=== PATIENT | female | born 1980 | race Caucasian/White ===

== ENCOUNTER → 2016-06-19 | Outpatient (CLI) | payer BC ==
[~2016-06-19] MED LIST: LEVO50TA6 PO; PRENTAB26 PO
[2016-06-19 09:44] LABS: BASO % 0.5 %; BASO ABS # 0.02 K/uL (0-0.2); EOS % 1.1 %; HEMATOCRIT 41.2 % (37-47); LYMPH % 40.6 %; LYMPH ABS # 1.77 K/uL (1.2-3.4); MEAN CELL VOLUME 92.8 fL (80-100); MEAN CORPUSCULAR HEMOGLOBIN 31.3 pg (25-34); MEAN PLATELET VOLUME 10.5 fL (7.4-10.4); MONO % 5.3 %; NEUT % 52.5 %; PLATELET COUNT 249 K/uL (130-400); RED BLOOD COUNT 4.44 M/uL (4.2-5.4); WHITE BLOOD COUNT 4.36 K/uL (4.8-10.8)
[2016-06-19 09:49] LABS: COMPLETE YES; MEAN CORPUSCULAR HGB CONC 33.7 g/dl (32-36)
[2016-06-19 10:37] LABS: PROLACTIN 1.84 ng/mL
== END | disposition home or self-care (01) ==
LOC: C.LAB 09:09
PROVIDERS: ATTEND Obstetrics & Gynecology Reproductive Endocrinology
DX: Z01.89 Encounter for other specified special examinations (principal); Z31.41 Encounter for fertility testing; Z13.29 Encounter for screening for other suspected endocrine disorder; Z13.21 Encounter for screening for nutritional disorder; Z11.3 Encounter for screening for infections with a predominantly sexual mode of transmission

== ENCOUNTER → 2016-08-25 | Outpatient (CLI) | payer BC | END | disposition home or self-care (01) | LOC: C.LAB 08:41 | PROVIDERS: ATTEND Obstetrics & Gynecology Reproductive Endocrinology | DX: O09.00 Supervision of pregnancy with history of infertility, unspecified trimester (principal); Z3A.00 Weeks of gestation of pregnancy not specified ==

== ENCOUNTER → 2016-09-30 | Outpatient (CLI) | payer BC ==
[2016-09-30 13:15] LABS: URINE APPEARANCE CLEAR (CLEAR); URINE BILIRUBIN NEG (NEG); URINE COLOR YELLOW; URINE NITRITE NEG (NEG); URINE SPECIFIC GRAVITY 1.009 (1.000-1.030); UROBILINOGEN NEG (NEG)
[2016-09-30 13:22] LABS: MANUAL MICROSCOPIC REQUIRED? NO; REVIEW REQ? NO
== END | disposition home or self-care (01) ==
LOC: C.LABSPEC 12:31
PROVIDERS: ATTEND Obstetrics & Gynecology
DX: O09.521 Supervision of elderly multigravida, first trimester (principal); Z3A.00 Weeks of gestation of pregnancy not specified

== ENCOUNTER → 2016-10-06 | Outpatient (CLI) | payer BC ==
[2016-10-06 10:27] LABS: BASO % 0.1 %; BASO ABS # 0.01 K/uL (0-0.2); COMPLETE YES; EOS % 0.4 %; HEMATOCRIT 39.2 % (37-47); IG% 0.1 %; LYMPH % 27.4 %; LYMPH ABS # 2.04 K/uL (1.2-3.4); MEAN CELL VOLUME 90.7 fL (80-100); MEAN CORPUSCULAR HEMOGLOBIN 32.6 pg (25-34); MEAN PLATELET VOLUME 10.5 fL (7.4-10.4); MONO % 4.7 %; NEUT % 67.3 %; PLATELET COUNT 234 K/uL (130-400); RED BLOOD COUNT 4.32 M/uL (4.2-5.4); WHITE BLOOD COUNT 7.44 K/uL (4.8-10.8)
[2016-10-06 11:08] LABS: THYROID STIMULATING HORMONE 1.21 uIu/ml (0.300-4.500)
[2016-10-08 01:02] LABS: CHLAMYDIA TRACH RNA*** NOT DETECTED (NOT DETECTED); GC (NEIS GONORRHOEAE)RNA** NOT DETECTED (NOT DETECTED)
== END | disposition home or self-care (01) ==
LOC: C.LAB1850 08:59
PROVIDERS: ATTEND Obstetrics & Gynecology
DX: O09.521 Supervision of elderly multigravida, first trimester (principal); O99.281 Endocrine, nutritional and metabolic diseases complicating pregnancy, first trimester; E03.9 Hypothyroidism, unspecified

== ENCOUNTER → 2016-11-09 | Outpatient (CLI) | payer BC ==
[2016-11-09 11:50] LABS: THYROID STIMULATING HORMONE 1.83 uIu/ml (0.300-4.500)
[2016-11-09 11:56] LABS: GTGD 50 Grams
[2016-11-10 15:23] LABS: AFP CONCENTRATION 20.8 NG/ML; AFP MULTIPLE OF MEDIAN 0.63; AFPTS GESTATIONAL AGE 15.9 WEEKS; AFPTS INSULIN DEP DIABETIC? NO; AFPTS MATERNAL WT 141 LBS; ALPHA-FETOPROTEIN RACE CAUCASIAN=W; EDD DETERMINED BY ULTRASOUND; HISTORY OF NTD NO; REPEAT SAMPLE? NO
== END | disposition home or self-care (01) ==
LOC: C.LAB1850 09:43
PROVIDERS: ATTEND Obstetrics & Gynecology
DX: O99.282 Endocrine, nutritional and metabolic diseases complicating pregnancy, second trimester (principal); O09.522 Supervision of elderly multigravida, second trimester; E03.9 Hypothyroidism, unspecified; Z3A.00 Weeks of gestation of pregnancy not specified

== ENCOUNTER → 2017-02-16 | Outpatient (CLI) | payer OTHER ==
[2017-02-16 13:08] LABS: HEMATOCRIT 37.2 % (37-47); HEMOGLOBIN 12.6 g/dL (12.0-16.0)
== END | disposition home or self-care (01) ==
LOC: C.LAB1850 12:16
PROVIDERS: ATTEND Obstetrics & Gynecology
DX: O09.523 Supervision of elderly multigravida, third trimester (principal); O99.282 Endocrine, nutritional and metabolic diseases complicating pregnancy, second trimester

== ENCOUNTER → 2017-03-01 | Outpatient (CLI) | payer OTHER | END | disposition home or self-care (01) | LOC: C.LABSPEC 16:26 | PROVIDERS: ATTEND Obstetrics & Gynecology | DX: O23.40 Unspecified infection of urinary tract in pregnancy, unspecified trimester (principal) ==

== ENCOUNTER → 2017-04-07 | Outpatient (CLI) | payer OTHER | END | disposition home or self-care (01) | LOC: C.LABSPEC 13:41 | PROVIDERS: ATTEND Obstetrics & Gynecology | DX: O99.283 Endocrine, nutritional and metabolic diseases complicating pregnancy, third trimester (principal) ==

== ENCOUNTER 2017-04-16 13:12 | Inpatient (IN) | payer OTHER ==
[~2017-04-16] VITALS: Ht 167.6 cm; Wt 68.6 kg
[2017-04-16] MEDS ORDERED: LACTATED RINGER'S 1000ML 1,000 ML IV PRN (13:28)
[2017-04-16] MEDS ORDERED: LACTATED RINGER'S 1000ML 1,000 ML IV SCH (13:35)
[2017-04-16] MEDS ORDERED: PENICILLIN G POTASSIUM IV 6 MU in DEXTROSE 5% 250ML 250 ML IV ONE (13:45)
[2017-04-16 13:56] LABS: HEMATOCRIT 36.1 % (37-47); HEMOGLOBIN 12.5 g/dL (12.0-16.0); MEAN CELL VOLUME 96.3 fL (80-100); MEAN CORPUSCULAR HEMOGLOBIN 33.3 pg (25-34); MEAN CORPUSCULAR HGB CONC 34.6 g/dl (32-36); MEAN PLATELET VOLUME 10.7 fL (7.4-10.4); PLATELET COUNT 162 K/uL (130-400); RED CELL DISTRIBUTION WIDTH CV 13.4 % (11.5-14.5); RED CELL DISTRIBUTION WIDTH SD 46.8 fL (36.4-46.3)
[2017-04-16 15:07] VITALS: Ht 167.6 cm; Wt 68.6 kg
[2017-04-16] MEDS ORDERED: OXYTOCIN 30 UNITS/500ML NSS IV ONE (15:58)
[2017-04-16] MEDS ORDERED: LANOLIN OINT EXT PRN (16:15)
[2017-04-16] MEDS ORDERED: BENZOCAINE 20% AER SPR 82.5 GM CAN EXT PRN (16:15)
[2017-04-16] MEDS ORDERED: OXYTOCIN 30 UNITS/500ML NSS IV PRN (16:15)
[2017-04-16] MEDS ORDERED: ACETAMINOPHEN/CODEINE 300/30MG TAB PO PRN ×2 (16:15)
[2017-04-16] MEDS ORDERED: ACETAMINOPHEN 325 MG TAB PO PRN (16:15)
[2017-04-16] MEDS ORDERED: SUPERCREAM 0.870 % 15GM JAR EXT PRN (16:15)
[2017-04-16] MEDS ORDERED: HYDROCORTISONE ACETATE 25 MG SUPP PR PRN (16:15)
[2017-04-16] MEDS ORDERED: DIPHTHERIA/TETANUS/PERTUSSIS 0.5 ML SYR/VIAL IM. ONE (16:15)
--- NOTE | 2017-04-16 17:18 | DELIVERY SUMMARY ---
DATE OF OPERATION: 04/16/2017 FINDINGS: Viable female with Apgars of 8 and 9. Baby delivered spontaneously over intact perineum. Nuchal cord x1 reduced on the perineum. Cord clamped and cut, cord blood samples obtained. Placenta delivered spontaneously. ESTIMATED BLOOD LOSS: 300 mL. LABOR NOTE: The patient is a 37-year-old 3, para 2 with an EDC of 27 April by dates and ultrasound who presented to labor and delivery in active labor. The patient had been having some contractions for the previous 18 hours that increased in intensity this morning of admission. She was seen in the office and noted to be 5 cm and sent to labor and delivery for evaluation. The patient has had a benign course. She had cell-free DNA testing because of advanced maternal age, which was reassuring. Blood type for the O negative, antibody negative, she received RhoGAM on 16 February. She was hepatitis B negative, rubella immune, normal 1-hour Glucola x2 and a positive third trimester beta strep culture. Upon admission, the patient was 6-7 cm dilated, tracing was category 2 with some decelerations with contractions, but variability and accelerations. With the GBS status, she received penicillin 6 million units loading dose. Approximately, an hour after the penicillin, the patient began to develop deeper decelerations with contractions. The patient was feeling pressure. Repeat examination showed the cervix to be 8 dilated, +2 station. Recommendation to the patient and her to have artificial rupture of membranes to proceed with delivery. Rupture of membranes were clear fluid and over the next contraction, the patient with full dilation. She pushed with the 2 contractions delivering the viable female with description as above. Cord blood samples obtained. Placenta delivered spontaneously. Inspection of the perineum found to be intact. Estimated blood loss for the delivery 300 mL. Sponge and needle count was correct. I attest to the content of the Intraoperative Record and any orders documented therein. Any exception s are noted below.
[2017-04-16] MEDS: IBUPROFEN 600 MG TAB PO PRN (17:22)
[2017-04-16] MEDS ORDERED: PENICILLIN G POTASSIUM IV 3 MU in DEXTROSE 5% 100ML 100 ML IV PRN (18:00)
[2017-04-16] MEDS: DOCUSATE SODIUM 100 MG CAP PO SCH (20:00)
[2017-04-16 20:55] VITALS: BP 100/65; PULSE 69; TEMP 36.4
[2017-04-16 23:25] VITALS: BP 99/59; PULSE 62; TEMP 36.7
[2017-04-17 03:40] VITALS: BP 96/54; PULSE 60; TEMP 36.9
[2017-04-17 06:55] LABS: HEMATOCRIT 35.5 % (37-47); HEMOGLOBIN 12.2 g/dL (12.0-16.0)
[2017-04-17] MEDS ORDERED: LEVOTHYROXINE 50 MCG TAB PO SCH (07:30)
--- NOTE | 2017-04-17 07:32 | Progress Note ---
Subjective Apr 17, 2017. Subjective conversation w/ patient, physical exam Ambulation: ambulating normally Feeding Type: Breast Feeding Objective Vital Signs Date Time Temp Pulse Resp B/P (MAP) Pulse Ox O2 Delivery O2 Flow Rate FiO2 04/17/17 03:40 36.9 60 18 96/54 (68) Room Air 04/16/17 23:25 36.7 62 18 99/59 (72) Room Air 04/16/17 23:25 Room Air 04/16/17 20:55 Room Air 04/16/17 20:55 36.4 69 18 100/65 (77) Room Air Physical Exam General Appearance: WELL-APPEARING, NO APPARENT DISTRESS Fundus: Firm Extremities: no calf tenderness Laboratory Results Last 24 Hours Test 04/16/17 13:43 04/17/17 06:33 White Blood Count 7.90 K/uL Red Blood Count 3.75 M/uL Hemoglobin 12.5 g/dL 12.2 g/dL Hematocrit 36.1 % 35.5 % Mean Corpuscular Volume 96.3 fL Mean Corpuscular Hemoglobin 33.3 pg Mean Corpuscular Hemoglobin Concent 34.6 g/dl RDW Standard Deviation 46.8 fL RDW Coefficient of Variation 13.4 % Platelet Count 162 K/uL Mean Platelet Volume 10.7 fL Assessment and Plan Post- Day#: 1 Continue Routine Care: - routine care - doing well
[2017-04-17 07:45] VITALS: BP 105/69; PULSE 59; TEMP 36.5; O2SAT 98
[2017-04-17] MEDS ORDERED: FERROUS SULFATE 325 MG TAB PO SCH (08:00)
[2017-04-17] MEDS: PRENATAL VITAMIN TAB PO SCH (09:06)
[2017-04-17] MEDS: DOCUSATE SODIUM 100 MG CAP PO SCH ×2 (09:07→20:00)
[2017-04-17 11:15] VITALS: BP 102/66; PULSE 56; TEMP 36.7; O2SAT 99
[2017-04-17 14:45] VITALS: BP 111/81; PULSE 60; TEMP 37; O2SAT 98
[2017-04-17] MEDS ORDERED: BISACODYL 5 MG TABEC PO SCH (20:00)
[2017-04-17] MEDS: IBUPROFEN 600 MG TAB PO PRN (20:17)
[2017-04-17 23:45] VITALS: BP 99/64; PULSE 60; TEMP 36.7
[2017-04-18 07:30] VITALS: BP 95/60; PULSE 57; TEMP 36.9; O2SAT 98
--- NOTE | 2017-04-18 08:10 | Progress Note ---
Subjective Apr 18, 2017. Subjective conversation w/ patient, physical exam, chart review Ambulation: ambulating normally Voiding: no incontinence Diet Tolerance: Regular Diet Lochia: Small Objective Vital Signs Date Time Temp Pulse Resp B/P (MAP) Pulse Ox O2 Delivery O2 Flow Rate FiO2 04/17/17 23:45 36.7 60 18 99/64 (76) 04/17/17 23:45 Room Air 04/17/17 14:45 37.0 60 18 111/81 (91) 98 Room Air 04/17/17 14:45 98 Room Air 04/17/17 11:15 36.7 56 16 102/66 (78) 99 Room Air Physical Exam General Appearance: WELL-APPEARING Abdomen: non tender Fundus: Firm Extremities: no calf tenderness Assessment and Plan Post- Day#: 2 Continue Routine Care: Patient doing well minimal bleeding no calf tenderness discharge home
--- NOTE | 2017-04-18 08:11 | Discharge Instructions ---
Discharge Instructions Date of Service Apr 18, 2017. Admission Reason for Admission: LABOR Discharge Discharge Diagnosis / Problem: Discharge Goals Goal(s): Routine recovery after delivery Activity Recommendations Activity Limitations: per Instructions/Follow-up section . Instructions / Follow-Up Instructions / Follow-Up ACTIVITY RECOMMENDATIONS: * Gradual return to full activity over the next 2-3 weeks. * No lifting - nothing heavier than baby over the next 2-3 weeks. * Do not engage in vigorous exercise, sexual activity or sports until cleared by your physician. * Do not drive or operate any motorized equipment until cleared by your physician. * You may shower/bathe daily. MEDICATIONS: For discomfort or pain, you may use Acetaminophen (Tylenol), Ibuprofen (Advil), or Naproxen (Aleve) following the package directions. For constipation you may use Colace following the package directions. BREAST CARE: If you are not breast feeding: * Wear a supportive bra 24 hours a day for one to two weeks. * Avoid stimulating your breasts and nipples as much as possible during the first few weeks after delivery. * When taking a shower, have the warm water hit your back, not breasts. * When your breasts feel full, apply ice packs. Usually three to four times a day helps ease the discomfort. * Take a mild pain medication (Tylenol / Motrin) when you are uncomfortable. If breast feeding: * Use breast milk to lubricate nipples. Lansinoh cream may be used for sore nipples. You do not need to remove cream prior to breast feeding. If using a different brand of cream, check the label for directions regarding removal of cream prior to nursing. * Wear a supportive bra. * If having problems with breasts or breast feeding, call a internal control consultant or your health care provider. EPISIOTOMY CARE: After delivery, if you have an episiotomy (stitches), the following steps will ease discomfort and aid healing. * For the first 24 hours after delivery, place ice packs next to your episiotomy to help reduce swelling. * After the first 24 hour-period, sitz baths, either portable or in the tub, are suggested. A shower with a shower arm sprayed over the episiotomy may be comforting. * Marcelle care should be done after each voiding and bowel movement. Squirt warm water from a plastic bottle over the perineum (region of the body between the anus and urinary opening) and pat dry. * Use Dermoplast to ease discomfort. Shake container. [place] directly over the episiotomy. Place a Tucks on a clean sanitary pad next to your episiotomy. SPECIAL CARE INSTRUCTIONS: When you are discharged from the hospital, it is important for you to follow the instructions listed below: * During the first week at home, you should be able to care for yourself and your baby. In addition, the usual light household activities are encouraged. * Limit your activities to the way you feel. Do not try to clean the house or move furniture. Be sensible. * If you actively engage in sports and have done so up until the time of your delivery, you may resume these activities as soon as you feel able. This may take up to one month or even longer. Use good judgment. * Continue to take your vitamins for at least six weeks after the of your baby. * Your diet need not be limited unless you were on a special diet before your delivery. Breast-feeding mothers need around 2500 calories per day and at least 64-80 ounces of fluid per day (8 to 10 glasses). * You should eat foods from the four major food groups. Crash diets or fad diets are to be avoided. Eating lean meats, fresh fruits and vegetables, low-fat dairy products, high fiber foods and a regular exercise program, will help you get back to your pre- weight without putting your health at risk. * Constipation is sometimes a problem after delivery. Take a mild laxative as needed. If breast feeding, Milk of Magnesia is acceptable to use. You may use a suppository or Fleets enema if no episiotomy. * A daily shower or tub bath is suggested. Be sure to thoroughly and gently dry the perineum. * A bloody vaginal discharge will usually continue until around four weeks post . A small amount of bleeding may continue for as long as six weeks. Vaginal discharge changes from the bright red bleeding after delivery to pink then brownish and finally yellowish-pink before becoming white and disappearing. * Bleeding may increase with activity. Your first period may come in 4-8 weeks. If you are breast feeding, your period may be delayed even longer. * [place] (sex) can begin whenever both you and your partner feel comfortable and do not have any form of genital infection. It is recommended that you wait at least six weeks for internal and external healing to occur. If you have questions, please talk to your health care practitioner. A condom should be used to prevent infection and . * Foreplay, gentle intercourse and lubrication is very important the first several times to prevent pain. A water-based lubricant such as K-Y jelly or Astroglide may be used. * If you have RH negative blood and your baby is RH positive, you will receive RHOGAM by injection prior to discharge. The nurse will give you a card to keep with you that has the date and place that you received RHOGAM after delivery. * During your care, you had a Rubella screen done to check for the presence of rubella antibodies in your blood. If your test was negative, you will receive a Rubella vaccine prior to discharge. This vaccine may cause a fever, soreness at the injection site and flu-like symptoms. If these symptoms persist, notify your health care practitioner. is not advised for one month after a Rubella vaccine. * Verbalizes understanding of car seat law as reviewed with patient nursing. * Car Seat hand-out given and reviewed with patient by nursing. * Shaken baby information reviewed with patient by nursing. Call you doctor if: * Heavy bleeding (saturating several pads an hour) or passing clots the size of your fist. * A fever >101 degrees F (38.3 degrees C) on two occasions four hours apart and /or chills. * Unusual pain in the pelvic or vaginal areas. * "Baby Blues" lasting longer than two weeks. If you have any questions or concerns, call your health care practitioner at . FOLLOW UP VISIT: * Please call the office at to schedule a 6 week examination. It is important you keep this appointment. It is important for you to make arrangements for either yearly or twice yearly check-ups thereafter. Current Hospital Diet Patient's current hospital diet: Regular OB Diet Discharge Diet Recommended Diet: Regular OB Diet Pending Studies Studies pending at discharge: no Medical Emergencies . Who to Call and When: Medical Emergencies: If at any time you feel your situation is an emergency, please call 911 immediately. . Non-Emergent Contact Non-Emergency issues call your: [employer] . . "Provider Documentation" section prepared by Hernan Bunch. .
[2017-04-18] MEDS: PRENATAL VITAMIN TAB PO SCH (08:21)
[2017-04-18] MEDS: IBUPROFEN 600 MG TAB PO PRN (08:23)
[2017-04-18 16:10] VITALS: BP_DIAS 60; PULSE 57; TEMP 36.9
== END 2017-04-18 16:30 | disposition home or self-care (01) | DRG 775 ==
LOC: C.LD 13:12 → C.OBG 19:53
PROVIDERS: ADMIT Obstetrics & Gynecology; ATTEND Obstetrics & Gynecology
PROC: 10E0XZZ Delivery of Products of Conception, External Approach (ICD-10-PCS; principal; 2017-04-16)
DX: O76 Abnormality in fetal heart rate and rhythm complicating labor and delivery (principal); O69.81X0 Labor and delivery complicated by cord around neck, without compression, not applicable or unspecified; Z22.330 Carrier of Group B streptococcus; Z3A.38 38 weeks gestation of pregnancy; Z37.0 Single live birth

== ENCOUNTER 2019-11-27 22:15 | Inpatient (IN) ==
[2019-11-27] MEDS ORDERED: OXYTOCIN 30 UNITS/500 ML BAG IV PRN (22:58)
[2019-11-27] MEDS ORDERED: LACTATED RINGER'S 1,000 ML IV PRN (22:58)
[2019-11-27] MEDS ORDERED: ePHEDrine sulfate 50 MG/ML AMP ONE (23:19)
[2019-11-27] MEDS ORDERED: BUPIVACAINE 0.25% 30 ML VIAL ONE (23:19)
[2019-11-27] MEDS ORDERED: fentaNYL citrate 100 MCG/2 ML VIAL ONE (23:19)
[2019-11-27] MEDS ORDERED: fentaNYL 2MCG/ML ROPIVACAINE 1.25MG/ML 100 ML BAG EPI ONE (23:20)
[2019-11-27 23:21] LABS: Hematocrit (blood only) 40.9 % (37-47); Mean Corpuscular Hemoglobin 34.4 pg (25-34); Mean Corpuscular Volume 100.5 fL (80-100); Mean Platelet Volume 12.8 fL (7.4-10.4); Platelet Count 174 K/uL (130-400); RDW Coefficient of Variation 12.4 % (11.5-14.5); RDW Standard Deviation 45.3 fL (36.4-46.3); Red Blood Count 4.07 M/uL (4.2-5.4); White Blood Count 12.85 K/uL (4.8-10.8)
[2019-11-27 23:25] LABS: Mean Corpuscular Hgb Conc 34.2 g/dL (32-36)
--- NOTE | 2019-11-27 23:58 | Delivery Summary ---
Vaginal Delivery Summary Date of Service November 27, 2019 39yo at 39+wks sari presented to L&D with active labor at 5cm dilated, while awaiting placement of regional anesthesia her water broke and she rapidly progressed to complete. I was called to delivery room where patient was out of control. She was examined to be c/c/+2. She began to push but was not in control. The patient pushed to deliver a viable female Apgars 7 and 9 via over small vaginal laceration. Due to poor maternal efforts and concern for possible shoulder dystocia, the patient was moved to edge of bed and legs flexed back in McRobert's maneuvers. However with effective maternal expulsive efforts and gentle downward traction the anterior shoulder was delivered easily followed rapidly by the remaining body. The mouth and nose were bulb suctioned and the cord was doubly clamped and cut. The infant was placed on the maternal abdomen. Placenta delivered spontaneously and intact, three-vessel cord. Hemostasis achieved with dilute pitocin and bimanual massage and uterine massage. Cervix and sulci intact. Left labial laceration noted and after 1% local lidocaine reapproximated with 4-0 vicryl. Similarly small vaginal laceration at introitus was repaired with 4-0 vicryl in a single interrupted suture after 1% local lidocaine administered. EBL 300 cc. Cord blood and gases obtained. Mother and baby stable in recovery. PNC c/b 1. AMA 2. IVF-ICSI 3. RH neg PNL RH neg, RI, GBS NEG and covid neg. [facility] Vaginal Delivery Charge Vaginal Delivery Codes: 91790 global code for the antepartum, delivery, and post-
[2019-11-28] MEDS ORDERED: BENZOCAINE 20% AER SPR 82.5 GM CAN EXT PRN (00:03)
[2019-11-28] MEDS ORDERED: HYDROCORTISONE ACETATE 25 MG SUPP PR PRN (00:03)
[2019-11-28] MEDS ORDERED: OXYTOCIN 30 UNITS/500 ML BAG IV PRN (00:03)
[2019-11-28] MEDS ORDERED: oxyCODONE/ACETAMINOPHEN 5mg/325mg TAB PO PRN (00:03)
[2019-11-28] MEDS ORDERED: ACETAMINOPHEN 325 MG TAB PO PRN (00:03)
[2019-11-28] MEDS ORDERED: SUPERCREAM 0.870% 15 GM JAR EXT PRN (00:03)
[2019-11-28] MEDS ORDERED: IBUPROFEN 600 MG TAB PO ONE (00:09)
[2019-11-28] MEDS ORDERED: OXYTOCIN 20 UNITS in LACTATED RINGER'S 1,000 ML IV SCH (00:15)
[2019-11-28 00:17] LABS: Base Excess Cord Venous Blood 1.9 mEq/L (-7.7-1.9); Cord Venous Blood HCO3 27 mmol/L (18.4-26.8); Cord Venous Blood PCO2 43 mmHg (30.4-57.2); Cord Venous Blood PO2 30 mmHg (14.1-43.3); Cord Venous Blood pH 7.41 (7.20-7.44)
[2019-11-28 00:18] LABS: CO2 Cord Arterial Blood 56 mmHg (39.1-73.5); HCO3 Cord Arterial Blood 29 mmol/L (19.7-28.5); PO2 Cord Arterial Blood 21 mmHg (4.1-31.7); pH Cord Arterial Blood 7.34 (7.1-7.38)
[2019-11-28 00:25] LABS: Oxygen Sat Cord Arterial Blood < 60.0 % (<60)
[2019-11-28] MEDS ORDERED: DIPHTHERIA/TETANUS/PERTUSSIS 0.5 ML SYR/VIAL IM ONE (02:16)
[2019-11-28] MEDS: IBUPROFEN 600 MG TAB PO PRN ×2 (05:17→22:04)
[2019-11-28] MEDS: LEVOTHYROXINE SODIUM 75 MCG TABLET PO SCH (05:24)
--- NOTE | 2019-11-28 06:04 | Obstetrical Progress Note ---
Date of Service <Obi Andrews MD - Last Filed: 11/28/19 07:51> November 28, 2019 Assessment & Plan <Obi Andrews MD - Last Filed: 11/28/19 07:51> (1) Spontaneous vaginal delivery: Laurence is a 39 y/o female who is now PPD #1 following at 39-5/7 weeks. - Feels well today. Eating well, voiding well, ambulating well. - Pain well controlled with ibuprofen 600mg Q4H PRN. - Routine PPD care -- continue to promote OOB and ambulation throughout today - After discharge will have [address] Fried. Right Arm Stiffness - Clinically, patient reports right arm stiffness (not associated with pain) that has perhaps worsened overnight. She denies any numbness or tingling. - Physical exam does reveal mildly increased fullness within her right forearm/hand, but squeeze testing was negative and there was no generalized tenderness. Distal perfusion is intact. - At this time, this likely represents soreness from the delivery process with physiological swelling from . We will continue to monitor while here. Should swelling persist or worsen, could pursue RUE doppler to r/o DVT Code: Full code Diet: Regular OB (2) Advanced maternal age (AMA) in : Subjective <Oib Andrews MD - Last Filed: 11/28/19 07:51> Laurence is a 39 y/o female who is now PPD #1 following at 39-5/7 weeks. Reports feeling well overall this morning. She does endorse some stiffness and perhaps a little bit of increased swelling in her right arm and wrist. She notes "if you were to ask me to open up a jar with this hand, I'd probably have to pass it off to someone else." No pain associated with this stiffness. No numbness or tingling. Endorses some abdominal cramping with pain well managed on analgesics. Voiding without difficulty. Tolerating meals well and able to ambulate some. Endorses passing gas. Some persistent lochia with some improvement this morning. Breast feeding. Review of Systems Denies fever, chills, sweats Denies shortness of breath, difficulty breathing, chest pain, palpitations, chest pressure. Denies breast pain. Denies dysuria. Denies headache or changes in vision. Physical Exam <bOi Andrews MD - Last Filed: 11/28/19 07:51> General: Alert, oriented. No acute distress. Cardiac: Regular rate and rhythm, no murmurs/rubs/gallops. Respiratory: Clear to auscultation bilaterally a/p, no wheezes/rales/rhonchi. No increased work of breathing. Symmetrical chest rise. No respiratory distress. Abdomen: Soft, nontender, nondistended. Bowel sounds present. Uterus: Uterine fundus firm, palpable 2 cm below umbilicus. Upper Extremities: Visual examination of the right and left upper extremities does not reveal any skin lesions, gross edema, or erythema. Radial pulses are 2+ bilaterally. To palpation, the right forearm and hand is just a bit more full compared to the left. No pain when palpated up to the shoulder. Wrist ROM is full bilaterally. Sensation to touch is intact. Patient denies pain throughout the physical examination. Lower Extremities: No lower extremity edema or swelling. No deep calf pain. [place]'s negative bilaterally. Results & Data ([facility]) <Obi Andrews MD - Last Filed: 11/28/19 07:51> Vital Signs (Past 12 Hours) Vital Signs Temp Pulse Pulse Resp BP BP BP 11/28/19 05:00 36.7 C 71 18 105/61 11/28/19 02:25 36.8 C 56 L 18 124/73 124/73 11/28/19 01:55 36.8 C 16 11/28/19 01:54 58 L 108/63 11/28/19 01:39 63 117/59 L 11/28/19 01:24 64 16 111/61 11/28/19 01:09 72 18 114/67 11/28/19 00:54 65 18 116/64 11/28/19 00:39 64 16 109/61 11/28/19 00:24 62 16 117/64 11/28/19 00:09 64 18 120/60 11/27/19 23:54 37.1 C 67 18 116/59 L 11/27/19 22:30 36.5 C 60 16 115/67 11/27/19 22:23 36.5 C 60 18 115/67 <Cee Fried MD, FACOG - Last Filed: 11/28/19 07:56> Co-Signing Physician Notes Resident Physician Supervision Note: I was present with Dr. Andrews during the history and exam. I discussed the case with the resident and agree with the findings and plan as documented in the note. Any exceptions or clarifications are listed here: pt doing well, eating, voiding, ambulating without problem. breast feeding. has right arm stiffness as described above, iv site in that arm and h/o carpel tunnel, will monitor, likely musculoskel discomfort. ff at u and firm. nt calves. routine pp care, pt is stable. rh neg, needs rhogam eval. Documented By: Cee Fried MD, FACOG Resident Activity Tracking <Obi Andrews MD - Last Filed: 11/28/19 07:51> Resident Involvement: Resident Care Provided Care Provided: Adult Hospital Medicine and OB Delivery
[2019-11-28] MEDS: DOCUSATE SODIUM 100 MG CAP PO SCH ×2 (08:25→21:40)
[2019-11-28] MEDS ORDERED: Nursing to Pharmacy Communication SCH (09:15)
[2019-11-29] MEDS: IBUPROFEN 600 MG TAB PO PRN ×2 (02:13→06:36)
--- NOTE | 2019-11-29 05:25 | Obstetrical Progress Note ---
Date of Service <Obi Andrews MD - Last Filed: 11/29/19 06:20> November 29, 2019 Assessment & Plan <Obi Andrews MD - Last Filed: 11/29/19 06:20> (1) Spontaneous vaginal delivery: Laurence is a 39 y/o female who is now PPD #2 following at 39-5/7 weeks. - Feels well today. Eating well, voiding well, ambulating well. - Pain well controlled with ibuprofen 600mg Q4H PRN. - Routine PPD care -- continue to promote OOB and ambulation throughout today - After discharge will have [address] Fried. - Anticipate d/c today Right Arm Stiffness - Clinically, patient reports right arm stiffness (not associated with pain) that has continued through yesterday and into this AM. Numbness and tingling was present mildly throughout yesterday and most noticeable to the patient this AM. No clear distribution. - Physical exam this AM reveals a soft RUE that is not edematous. Squeeze testing was negative and there was is generalized tenderness. Active ROM of the wrist is decreased, but passive ROM is full. Distal perfusion is intact. - At this time, this likely continues to represent soreness from the delivery process with physiological swelling from , perhaps with a CTS-like distribution. No physical exam findings currently for a DVT. - Upon d/c, recommended ROM exercises, stretching, and splinting. Can ice PRN and take NSAIDs PRN to aid. Dispo: anticipate d/c today Code: Full code Diet: Regular OB (2) Advanced maternal age (AMA) in : Subjective <Obi Andrews MD - Last Filed: 11/29/19 06:20> Laurence is a 39 y/o female who is now PPD #2 following at 39-5/7 weeks. Reports feeling well overall this morning. Endorses some abdominal cramping with pain well managed on analgesics. Voiding without difficulty. Tolerating meals well and able to ambulate some. Endorses passing gas. Some persistent lochia with some improvement this morning. Breast/Bottle feeding. Regarding her right arm firmness, she does note that this continues into today. She endorses feeling more numbness and tingling in her hand this AM - but it did not wake her up from sleep. Does feel like her R wrist ROM continues to be decreased. Denies pain or additional swelling, just persistent firmness. Review of Systems Denies fever, chills, sweats Denies shortness of breath, difficulty breathing, chest pain, palpitations, chest pressure. Denies breast pain. Denies dysuria. Denies headache or changes in vision. Physical Exam <Obi Andrews MD - Last Filed: 11/29/19 06:20> General: Alert, oriented. No acute distress. Cardiac: Regular rate and rhythm, no murmurs/rubs/gallops. Respiratory: Clear to auscultation bilaterally a/p, no wheezes/rales/rhonchi. No increased work of breathing. Symmetrical chest rise. No respiratory distress. Abdomen: Soft, nontender, nondistended. Bowel sounds present. Uterus: Uterine fundus firm, palpable 2 cm below umbilicus. Upper Extremities: Visual examination of the right and left upper extremities does not reveal any skin lesions, gross edema, or erythema. Radial pulses are 2+ bilaterally. To palpation, the right forearm and hand feels soft and equal compared to the left. No pain when palpated up to the shoulder. Passive wrist ROM is full bilaterally; active R wrist ROM is decreased. Varitype Operator strength in the R hand is full. Sensation to touch is intact. Patient denies pain throughout the physical examination. Lower Extremities: No lower extremity edema or swelling. No deep calf pain. [place]'s negative bilaterally. Results & Data ([facility]) <Obi Andrews MD - Last Filed: 11/29/19 06:20> Vital Signs (Past 12 Hours) Vital Signs Temp Pulse Resp BP BP Pulse Ox 11/28/19 23:25 36.6 C 63 16 108/66 97 11/28/19 19:30 36.7 C 61 16 107/65 98 <Laisha Dhillon MD - Last Filed: 11/29/19 07:04> Co-Signing Physician Notes I have reviewed the resident's note and examined the patient myself, and agree with the note above. Resident Activity Tracking <Obi Andrews MD - Last Filed: 11/29/19 06:20> Resident Involvement: Resident Care Provided Care Provided: Adult Hospital Medicine and OB Delivery
[2019-11-29] MEDS: LEVOTHYROXINE SODIUM 75 MCG TABLET PO SCH (06:39)
[2019-11-29] MEDS: DOCUSATE SODIUM 100 MG CAP PO SCH (07:52)
== END 2019-11-29 11:00 | disposition home or self-care (01) | DRG 806 ==
LOC: OPB 22:15 → 4S1 22:16 → 4S2 11-28 02:25

== ENCOUNTER 2024-10-02 21:06 | Inpatient (IN) ==
[2024-10-02] MEDS: SODIUM CHLORIDE 0.9% 1,000 ML IV ONE ×2 (21:34→23:06)
[2024-10-02] MEDS: ACETAMINOPHEN 1,000 MG/100 ML VIAL IV STA (21:35)
[2024-10-02] MEDS: ONDANSETRON INJ 2 MG/ML 2 ML VIAL IV STA (21:35)
--- NOTE | 2024-10-02 21:37 | Emergency Department Note ---
Impression & Plan Anaplasmosis, Headache, Abdominal pain, Acute hypotension, Acute hyponatremia, Thrombocytopenia ED Provider Note NAME: JANE GARSIA AGE: 44 SEX: F : 1980 ARRIVES VIA: Walk-In INFORMANT: Patient, ED PROVIDER(S): Luis Carlos Lagos DO CHIEF COMPLAINT: Headache HPI: The patient is a 44-year-old female who presented to the emergency department for an evaluation of multiple complaints. The patient's been experiencing headache and not feeling well. She has had weakness and now she is noticing abdominal pain as well as pleuritic chest pain. The patient denies having any recent trauma. She was seen in an outpatient clinic and started on antibiotic for presumed sinusitis. The patient presented to the Emergency Department this evening with a friend who states that she has not been acting normally. She has been confused. ROS: See above HPI for pertinent positives & negatives. A total of 10 systems reviewed and were otherwise negative. PAST MEDICAL HISTORY: See Below PAST SURGICAL HISTORY: See Below FAMILY HISTORY: See Below SOCIAL HISTORY: See Below HOME MEDICATIONS: See Below ALLERGIES: See Below VITALS: See Below PHYSICAL EXAMINATION: GENERAL: The patient is awake and answering questions appropriately. She does appear somewhat listless. EYES: The conjunctivae are clear. The pupils are round and reactive. EARS, NOSE, MOUTH AND THROAT: The nose is without any evidence of any deformity. NECK: The neck is nontender and supple. RESPIRATORY: Normal respiratory effort is noted there is no evidence of wheezing rhonchi or rales CARDIOVASCULAR: Regular rate and rhythm noted there no murmurs rubs or gallops normal S1 normal S2. GASTROINTESTINAL: The abdomen was soft and mildly distended. There is diffuse tenderness to palpation but no specific guarding rigidity. MUSCULOSKELETAL/EXTREMITIES: There is no evidence of gross deformity full range of motion is noted in the hips and shoulders. SKIN: There is no obvious evidence of any rash. There are no petechiae, pallor or cyanosis noted. NEUROLOGIC: Patient is awake and oriented x3 strength is symmetric patellar reflexes are 2+ bilaterally MEDICAL DECISION MAKING: The patient is a 44-year-old female who presented to the emergency department for an evaluation of multiple complaints. The patient has been suffering with the symptoms over the course of the last several days. The patient was treated with IV fluids and IV pain medication. She was also treated with IV antiemetics. She was found to have a positive anaplasmosis smear. She was thrombocytopenic. She was treated with IV antibiotics in emergency department. I discussed the patient's laboratory and radiographic studies with her. She was reevaluated multiple times. I discussed her condition with the on-call [facility] hospitalist. They have agreed to evaluate the patient in the emergency department for further management and disposition. Triage Nursing notes reviewed. Prior medical records reviewed Vital Signs: reviewed and remarkable for hypotension. Differential diagnosis: Migraine headache, meningitis, sinusitis, CO exposure, ICH, SAH, infection, tumor, headache, sinus thrombosis, arterial dissection, as well as other pathologies. ER treatment provided: See below Diagnostics interpreted by me: ECG: EKG was obtained in the emergency department. My interpretation is normal sinus rhythm at 67 bpm. There is no ectopy. There was no acute ST segment abnormalities noted. QTc was 480 ms. Cardiac Monitoring: An order was placed for continuous cardiac monitoring. The monitor shows a rate of 75 bpm with sinus rhythm. Laboratory studies: As stated above and show below. Imaging studies: See below. Radiographic imaging was reviewed by myself Consultation(s): I discussed this case with Dr. Segura [facility] 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 2017 Hx of varicella Supervision of normal intrauterine in multigravida Encounter for anatomic survey Advanced maternal age (AMA) in Surgical History [place] teeth removed Family History Other No pertinent family history Social History Smoking Status: Never smoker Second Hand Exposure: No; Do You Dip or Chew Tobacco: No; Hx Alcohol Use: No Hx Substance Use: No Preferred Language: Amharic Communication Ability: Effective Customer Care Coordinator Required: No Beliefs That Will Affect Care: None marital status: marital status details: Emre Mireles (40) [phone] Current Living Situation: Spouse and Family Current Living Situation Comment: and 3 daughters current occupational status: employed current occupation: Professor Feels Safe at Home: Yes Assistive Devices: None Allergies Allergies Allergy/AdvReac Type Severity Reaction Status Date / Time No Known Allergies Allergy Verified 09/27/24 11:29 Home Meds Previous Rx's Medication Instructions Recorded amoxicillin 875 mg tablet 875 mg PO BID 10 days #20 tabs 09/27/24 ketorolac 10 mg tablet 10 mg PO Q6H PRN pain/headache 09/27/24 #10 tabs ondansetron HCl 4 mg tablet 4 mg PO Q8H PRN nausea and 09/27/24 vomiting #30 tabs Results & Data (ED) Vital Signs Vital Signs - 24 hr 10/02/24 21:09 10/02/24 21:22 10/02/24 21:25 Temperature 36.7 C Temperature Source Temporal Artery Scan Pulse Rate 71 69 Pulse Rate [Apical] 75 Respiratory Rate 18 17 Respiratory Effort / Characteristics Non-Labored Spontaneous Non-Labored Respiratory Depth Normal Normal Respiratory Pattern Regular Regular Blood Pressure 78/53 L Blood Pressure [Right Arm] 89/63 L Blood Pressure Mean 61 Blood Pressure Mean [Right Arm] 71 Blood Pressure Position Sitting Pulse Oximetry 98 100 Oxygen Delivery Method Room Air Room Air Sepsis Recent Fever Within 48 Hours No Sepsis New/Unexplained Change in Mental Status No Sepsis Action Taken by Nursing No Action Required 10/02/24 21:25 10/02/24 21:33 10/02/24 21:48 Temperature 36.6 C Temperature Source Oral Pulse Rate 70 Pulse Rate [Apical] 68 67 Respiratory Rate 17 17 17 Respiratory Effort / Characteristics Non-Labored Non-Labored Respiratory Depth Normal Normal Respiratory Pattern Regular Regular Blood Pressure Blood Pressure [Right Arm] 95/65 L 86/55 L Blood Pressure Mean Blood Pressure Mean [Right Arm] 75 65 Blood Pressure Position Pulse Oximetry 100 100 100 Oxygen Delivery Method Room Air Room Air Room Air Sepsis Recent Fever Within 48 Hours Sepsis New/Unexplained Change in Mental Status Sepsis Action Taken by Nursing 10/02/24 22:03 10/02/24 22:18 10/02/24 22:30 Temperature Temperature Source Pulse Rate Pulse Rate [Apical] 66 66 64 Respiratory Rate 16 17 18 Respiratory Effort / Characteristics Non-Labored Non-Labored Non-Labored Respiratory Depth Normal Normal Normal Respiratory Pattern Regular Regular Regular Blood Pressure Blood Pressure [Right Arm] 86/55 L 87/56 L 84/54 L Blood Pressure Mean Blood Pressure Mean [Right Arm] 65 66 64 Blood Pressure Position Pulse Oximetry 100 100 100 Oxygen Delivery Method Room Air Room Air Room Air Sepsis Recent Fever Within 48 Hours Sepsis New/Unexplained Change in Mental Status Sepsis Action Taken by Nursing 10/02/24 22:45 10/02/24 23:00 Temperature Temperature Source Pulse Rate Pulse Rate [Apical] 63 65 Respiratory Rate 16 17 Respiratory Effort / Characteristics Non-Labored Non-Labored Respiratory Depth Normal Normal Respiratory Pattern Regular Regular Blood Pressure Blood Pressure [Right Arm] 86/55 L 86/50 L Blood Pressure Mean Blood Pressure Mean [Right Arm] 65 62 Blood Pressure Position Pulse Oximetry 99 100 Oxygen Delivery Method Room Air Room Air Sepsis Recent Fever Within 48 Hours Sepsis New/Unexplained Change in Mental Status Sepsis Action Taken by Usp Medications Current Medication List: was personally reviewed by me Laboratory Data Attestation: I reviewed the patient's lab results. 10/02/24 21:20 10/02/24 21:20 Lab Results 10/02/24 10/02/24 10/02/24 Range/Units 21:20 21:25 21:26 WBC 5.31 (4.8-10.8) K/ul RBC 3.45 L (4.20-5.40) M/uL Hgb 10.8 L (12.0-16.0) g/dl POC Hgb 11.2 L (12.0-16.0) g/dl Hct 31.4 L (37.0-47.0) % POC Hct 33 L (37-47) % MCV 91.0 (80.0-100.0) fL MCH 31.3 (25.0-34.0) pg MCHC 34.4 (32.0-36.0) g/dL RDW Std Deviation 43.6 (36.4-46.3) fL RDW Coeff of Rosana 13.1 (11.5-14.5) % Plt Count 86 L (130-400) K/uL MPV 12.1 (9.4-12.4) fL Immature Gran % (Auto) 1.3 % Neut % (Auto) 81.7 % Lymph % (Auto) 12.6 % [place] % (Auto) 3.8 % Eos % (Auto) 0.2 % Baso % (Auto) 0.4 % Neut # (Auto) 4.34 (1.40-6.50) K/uL Lymph # (Auto) 0.67 L (1.20-3.40) K/uL [place] # (Auto) 0.20 (0.11-0.59) K/uL Eos # (Auto) 0.01 (0.00-0.50) K/uL Baso # (Auto) 0.02 (0.00-0.20) K/uL Immature Gran # (Auto) 0.07 (0.01-0.20) K/uL PT 11.4 (9.0-12.0) Seconds INR 1.1 (0.9-1.1) APTT 31 (21-31) Seconds PTT Ratio 1.2 VBG pH 7.43 H (7.36-7.41) VBG pCO2 49 (38-50) mmHg VBG pO2 33 mmHg VBG HCO3 33 mmol/L VBG O2 Saturation 62.9 % VBG Base Excess 6.9 mEq/L POC Sodium 130 L (135-144) mmol/L Sodium 130 L (136-145) mmol/L POC Potassium 4.3 (3.3-5.0) mmol/L Potassium 4.3 (3.5-5.1) mmol/L POC Chloride 92 L (101-112) mmol/L Chloride 93 L (98-107) mmol/L Carbon Dioxide 30 (21-32) mmol/L POC Total CO2 27 (24-31) mmol/L Anion Gap 7 (3-11) POC Anion Gap 17.0 (16-25) mmol/L POC BUN 13 (7-18) mg/dl BUN 15 (6-23) mg/dl Creatinine 0.84 (0.6-1.2) mg/dl POC Creatinine 0.9 (0.6-1.3) mg/dl Est Cr Clr Drug Dosing 75.3 ml/min eGFR 86.74 BUN/Creatinine Ratio 17.9 (10-20) Glucose 118 H (70-99(Fasting)) mg/dl POC Glucose (other) 119 H (70-99) mg/dl Lactate 1.4 (0.4-2.0) mmol/L Calcium 8.6 (8.6-10.3) mg/dl POC Ioniz Calcium Emily 1.10 L (1.12-1.32) mmol/l Magnesium 2.0 (1.7-2.4) mg/dl Total Bilirubin 0.6 (0.2-1.0) mg/dl Direct Bilirubin 0.1 (0-0.2) mg/dl AST 35 (13-39) U/L ALT 33 (7-52) U/L Alkaline Phosphatase 119 H (34-104) U/L Ammonia (18-72) umol/L Troponin I High Sens 9.6 (0-14) pg/ml Total Protein 6.9 (6.0-8.3) gm/dl Albumin 3.3 L (3.4-5.0) gm/dl Procalcitonin 1.39 H (0-0.5) ng/ml HCG, Qual Negative (Negative) Urine Color Urine Appearance (Clear) Urine pH (4.5-7.5) Ur Specific [place] (1.000-1.030) Urine Protein (Negative) Urine Glucose (UA) (Negative) Urine Ketones (Negative) Urine Blood (Negative) Urine Nitrite (Negative) Urine Bilirubin (Negative) Urine Urobilinogen (Negative) Ur Leukocyte Esterase (Negative) Urine Comment Salicylates < 3.0 L (3.0-30) mg/dl Acetaminophen 16 (10-30) ug/ml Babesia Smear See Comment Lyme Disease Screen Positive H (Negative) Lyme Tier 2 IgG Confirm Positive H (Negative) Lyme Tier 2 IgM Confirm Positive H (Negative) SARS-CoV-2 (PCR) (Negative) Influenza Type A (PCR) (Neg) Influenza Type B (PCR) (Neg) RSV (RT-PCR) (Neg) 10/02/24 10/02/24 10/02/24 Range/Units 21:33 22:26 23:02 WBC (4.8-10.8) K/ul RBC (4.20-5.40) M/uL Hgb (12.0-16.0) g/dl POC Hgb (12.0-16.0) g/dl Hct (37.0-47.0) % POC Hct (37-47) % MCV (80.0-100.0) fL MCH (25.0-34.0) pg MCHC (32.0-36.0) g/dL RDW Std Deviation (36.4-46.3) fL RDW Coeff of Rosana (11.5-14.5) % Plt Count (130-400) K/uL MPV (9.4-12.4) fL Immature Gran % (Auto) % Neut % (Auto) % Lymph % (Auto) % [place] % (Auto) % Eos % (Auto) % Baso % (Auto) % Neut # (Auto) (1.40-6.50) K/uL Lymph # (Auto) (1.20-3.40) K/uL [place] # (Auto) (0.11-0.59) K/uL Eos # (Auto) (0.00-0.50) K/uL Baso # (Auto) (0.00-0.20) K/uL Immature Gran # (Auto) (0.01-0.20) K/uL PT (9.0-12.0) Seconds INR (0.9-1.1) APTT (21-31) Seconds PTT Ratio VBG pH (7.36-7.41) VBG pCO2 (38-50) mmHg VBG pO2 mmHg VBG HCO3 mmol/L VBG O2 Saturation % VBG Base Excess mEq/L POC Sodium (135-144) mmol/L Sodium (136-145) mmol/L POC Potassium (3.3-5.0) mmol/L Potassium (3.5-5.1) mmol/L POC Chloride (101-112) mmol/L Chloride (98-107) mmol/L Carbon Dioxide (21-32) mmol/L POC Total CO2 (24-31) mmol/L Anion Gap (3-11) POC Anion Gap (16-25) mmol/L POC BUN (7-18) mg/dl BUN (6-23) mg/dl Creatinine (0.6-1.2) mg/dl POC Creatinine (0.6-1.3) mg/dl Est Cr Clr Drug Dosing ml/min eGFR BUN/Creatinine Ratio (10-20) Glucose (70-99(Fasting)) mg/dl POC Glucose (other) (70-99) mg/dl Lactate (0.4-2.0) mmol/L Calcium (8.6-10.3) mg/dl POC Ioniz Calcium Emily (1.12-1.32) mmol/l Magnesium (1.7-2.4) mg/dl Total Bilirubin (0.2-1.0) mg/dl Direct Bilirubin (0-0.2) mg/dl AST (13-39) U/L ALT (7-52) U/L Alkaline Phosphatase (34-104) U/L Ammonia 20.0 (18-72) umol/L Troponin I High Sens (0-14) pg/ml Total Protein (6.0-8.3) gm/dl Albumin (3.4-5.0) gm/dl Procalcitonin (0-0.5) ng/ml HCG, Qual (Negative) Urine Color Yellow Urine Appearance Clear (Clear) Urine pH 7.0 (4.5-7.5) Ur Specific [place] 1.010 (1.000-1.030) Urine Protein Negative (Negative) Urine Glucose (UA) Negative (Negative) Urine Ketones Negative (Negative) Urine Blood Negative (Negative) Urine Nitrite Negative (Negative) Urine Bilirubin Negative (Negative) Urine Urobilinogen Negative (Negative) Ur Leukocyte Esterase Negative (Negative) Urine Comment Salicylates (3.0-30) mg/dl Acetaminophen (10-30) ug/ml Babesia Smear Lyme Disease Screen (Negative) Lyme Tier 2 IgG Confirm (Negative) Lyme Tier 2 IgM Confirm (Negative) SARS-CoV-2 (PCR) NEGATIVE (Negative) Influenza Type A (PCR) Negative (Neg) Influenza Type B (PCR) Negative (Neg) RSV (RT-PCR) Negative (Neg) Administered Medications Discontinued Medications Doxycycline Hyclate (Doxycycline Hyclate 100 Mg Cap) 200 mg PO NOW STA Stop: 10/02/24 22:40 Last Admin: 10/02/24 23:06 Dose: 200 mg Documented By: JADE Acetaminophen (Ofirmev) 1,000 mg in 100 mls @ 400 mls/hr IV NOW STA Stop: 10/02/24 21:46 Last Infusion: 10/02/24 21:57 Dose: Infused Documented By: Admin: 10/02/24 21:35 Dose: 400 mls/hr Documented By: JADE Sodium Chloride (Nss) 1,000 mls @ 999 mls/hr IV .Q1H1M ONE Stop: 10/02/24 22:32 Last Infusion: 10/02/24 22:43 Dose: Infused Documented By: Admin: 10/02/24 21:34 Dose: 999 mls/hr Documented By: JADE Sodium Chloride (Nss) 1,000 mls @ 999 mls/hr IV .Q1H1M ONE Stop: 10/02/24 23:39 Last Admin: 10/02/24 23:06 Dose: 999 mls/hr Documented By: JADE Ceftriaxone Sodium (Rocephin) 2,000 mg in 50 mls @ 100 mls/hr IV NOW STA Stop: 10/02/24 23:08 Last Admin: 10/02/24 23:06 Dose: 100 mls/hr Documented By: JADE Ondansetron HCl (Ondansetron Inj 2 Mg/Ml 2 Ml Vial) 4 mg IV NOW STA Stop: 10/02/24 21:33 Last Admin: 10/02/24 21:35 Dose: 4 mg Documented By: JADE Imaging Data Attestation: I personally reviewed and interpreted this imaging study as follows: My Impression: 1 view chest x-ray was obtained in the emergency department. My interpretation is no free air or definite infiltrate, final report pending. CT of the brain was obtained in the emergency department. My interpretation is no intracranial hemorrhage or mass effect, final report pending. Discharge Plan Visit Data Chief Complaint: Illness Stated Complaint: SMITH, FATIGUE, ABD PAIN, CHEST PAIN ED Provider: Luis Carlos Lagos Discharge Problem: Anaplasmosis, Headache, Abdominal pain, Acute hypotension, Acute hyponatremia, Thrombocytopenia Patient Disposition: Being Evaluated by Hospitalist Condition: Fair Forms Stand Alone Forms: My [facility] Prescriptions Prescriptions: No Action amoxicillin 875 mg tablet 875 mg PO BID 10 Days Qty: 20 0RF ondansetron HCl 4 mg tablet 4 mg PO Q8H PRN (Reason: nausea and vomiting) Qty: 30 0RF ketorolac 10 mg tablet 10 mg PO Q6H PRN (Reason: pain/headache ) Qty: 10 0RF Rx Instructions: maximum total duration of 5 days from all oral, intranasal, or parenteral formulations Referrals Referrals: Yosvany Melgar MD [Primary Care Provider] -
[2024-10-02 21:40] LABS: Base Excess VBG 6.9 mEq/L; HCO3 VBG 33 mmol/L; Oxygen Saturation VBG 62.9 %; PCO2 VBG 49 mmHg (38-50); PO2 VBG 33 mmHg; pH VBG 7.43 (7.36-7.41)
[2024-10-02 22:01] LABS: Alanine Aminotransferase 33.0 U/L (7-52); Alkaline Phosphatase 119.0 U/L (34-104); Anion Gap 7.0 (3-11); Bilirubin,Total 0.6 mg/dl (0.2-1.0); Blood Urea Nitrogen 15.0 mg/dl (6-23); Calcium 8.6 mg/dl (8.6-10.3); Carbon Dioxide 30.0 mmol/L (21-32); Chloride 93.0 mmol/L (98-107); Creatinine Clr Calc Pharmacy 75.3 ml/min; Glucose 118.0 mg/dl (70-99(Fasting)); Magnesium 2.0 mg/dl (1.7-2.4); Potassium 4.3 mmol/L (3.5-5.1); Sodium 130.0 mmol/L (136-145); Total Protein 6.9 gm/dl (6.0-8.3)
[2024-10-02 22:02] LABS: Procalcitonin 1.39 ng/ml (0-0.5)
[2024-10-02 22:05] LABS: Pregnancy Test, Serum Negative (Negative)
[2024-10-02 22:18] LABS: INR 1.1 (0.9-1.1); Partial Thromboplastin Time 31 Seconds (21-31); Prothrombin Time 11.4 Seconds (9.0-12.0)
[2024-10-02 22:28] LABS: Lyme Screen Rflx Confirmation Positive (Negative)
[2024-10-02 22:32] LABS: Acetaminophen 16 ug/ml (10-30); Salicylate < 3.0 mg/dl (3.0-30)
[2024-10-02 22:34] LABS: Influenza A virus by PCR Negative (Neg); Influenza B virus by PCR Negative (Neg); SARS CoV2 RNA(COVID-19) Ceph NEGATIVE (Negative)
[2024-10-02 23:03] LABS: Hematocrit (blood only) 31.4 % (37.0-47.0); Hemoglobin 10.8 g/dl (12.0-16.0); Immature Granulocytes # (auto) 0.07 K/uL (0.01-0.20); Immature Granulocytes % (auto) 1.3 %; Mean Corpuscular Hemoglobin 31.3 pg (25.0-34.0); Mean Corpuscular Volume 91.0 fL (80.0-100.0); Platelet Count 86 K/uL (130-400); RDW Standard Deviation 43.6 fL (36.4-46.3); Red Blood Count 3.45 M/uL (4.20-5.40); White Blood Count 5.31 K/ul (4.8-10.8)
[2024-10-02] MEDS: cefTRIAXone SODIUM 2,000 MG/50 ML BAG IV STA (23:06)
[2024-10-02] MEDS: DOXYCYCLINE HYCLATE 100 MG CAP PO STA (23:06)
[2024-10-02 23:09] LABS: Lyme Ab IgG 2nd Tier Confirm Positive (Negative)
[2024-10-02 23:10] LABS: Lyme Ab IgM 2nd Tier Confirm Positive (Negative)
[2024-10-02 23:37] LABS: Appearance Urine Clear (Clear); Glucose Urine UA Negative (Negative)
[2024-10-03] MEDS: LACTATED RINGER'S 1,000 ML IV STA (00:01)
[2024-10-03] MEDS: CALCIUM GLUCONATE 1,000 MG/60 ML BAG IV SCH (00:01)
--- NOTE | 2024-10-03 00:25 | History & Physical Report ---
Date of Service October 03, 2024 Assessment & Plan (1) Anaplasmosis: (2) Lyme disease: (3) Pneumonia: (4) Abdominal pain: Plan 44yo female presenting with 10 days of illness - chills, fatigue, SMITH as well as abdominal discomfort. 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 Patient does not recall any tick bites but does spend a great deal of time outdoors hiking. Her labs are significant for normochromic/n ormocytic anemia with Hgb=10.8, Hct=31.4, thrombocytopenia with platelets=86, lymphopenia, hyponatremia with Zg=095 as well. Patient with elevated procalcitonin = 1.39. SIRS 0/4. Blood pressure has been low -Admit to PCU -Follow cultures sent from ER -Follow Babesiosis and Erlichia DNA - if patient fails to improve with Doxycycline therapy would consider initiating Azithromycin + Atovaquone -Continue Doxycycline 100mg PO BID -LR at 125mL/hr x 1L ordered -Tylenol PRN pain or fever -Toradol PRN pain or fever -Zofran PRN nausea #Lyme disease - patient with IgM and IgG positive -Doxycycline 100mg po BID #Pneumonia - CXR with possible atypical PNA. Covid-19 testing is NEGATIVE -Follow cultures sent from the ER -Continue Doxycycline 100mg IV BID which will cover atypical pathogens -Ceftriaxone 1gm IV daily #Abdominal pain - etiology unclear -Repeat LFTs in AM -If elevated or worsening abdominal pain would consider CT. (Patient and did express some concern about radiation exposure from CT of the abdomen - appx 8-10mSv, equal to about 3 years of background radiation - very mild increase in risk of cancer) History of Present Illness Chief Complaint: illness Primary Care Provider: Yosvany Melgar MD Laurence Nunez is a 44yo female presenting with illness. For the last 10 days patient has been feeling ill. She has had SMITH, chills, fatigue as well as neck stiffness. Over the last two days she has had some upper abdominal abdominal discomfort and nausea with one episode of non-bloody/non-bilious vomiting that occurred on 10/01/24. Nausea has been fairly persistent for the last 6 days. She has ongoing SMITH with scalp tenderness. Patient also with diminished appetite and poor oral intake. She denies cough. Has some pleuritic discomfort in her upper abdomen. Patient was seen at [facility] on 09/27 and was given an IM dose of Toradol and prescribed Amoxicillin which she has been taking as instructed with no improvement in symptoms. Patient is very active and hikes a lot. She was recently in a lot of brush at [facility] but denies any known tick bites or rashes. In the ER patient hypotensive with blood pressure 78-95 / 53-65 ER Course: NSS x 2L bolus LR x 1L Calcium gluconate x 2gm IV Tylenol 1gm Zofran 4mg IV Ceftriaxone 2gm IV Doxycycline 200mg PO Allergies Allergy/AdvReac Type Severity Reaction Status Date / Time No Known Allergies Allergy Verified 09/27/24 11:29 Home Medications Medication Instructions Recorded Confirmed Type amoxicillin 875 mg tablet 875 mg PO BID 10 days #20 tabs 09/27/24 09/27/24 Rx ketorolac 10 mg tablet 10 mg PO Q6H PRN pain/headache 09/27/24 09/27/24 Rx #10 tabs ondansetron HCl 4 mg tablet 4 mg PO Q8H PRN nausea and 09/27/24 09/27/24 Rx vomiting #30 tabs Past Med/Surg History Problem List (Updated 10/03/24 @ 03:22 by Cayla Segura DO) Pneumonia Lyme disease Thrombocytopenia (Acute) Acute hyponatremia (Acute) Acute hypotension (Acute) Abdominal pain (Acute) Headache (Acute) Anaplasmosis (Acute) Dense breast tissue EXTREMELY DENSE BREAST TISSUE PER SCREENING MAMMOGRAM Supervision of resulting from assisted reproductive technology, antepartum Need for rhogam due to Rh negative mother Medical History Spontaneous vaginal delivery GBS carrier In vitro fertilization ICSI 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 2017 Hx of varicella Supervision of normal intrauterine in multigravida Encounter for anatomic survey Advanced maternal age (AMA) in Surgical History Shiro teeth removed Family History Other No pertinent family history Social History Smoking Status: Never smoker Second Hand Exposure: No; Do You Dip or Chew Tobacco: No; Hx Alcohol Use: No Hx Substance Use: No Preferred Language: Arabic Communication Ability: Effective 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 Beliefs That Will Affect Care: None marital status: marital status details: Emre Mireles [phone] Current Living Situation: Spouse and Family Current Living Situation Comment: and 3 daughters current occupational status: employed current occupation: Professor Feels Safe at Home: Yes Assistive Devices: None Review of Systems Review of Systems: All systems reviewed & are unremarkable except as noted in HPI & below Physical Exam Physical Exam: General: patient ill in appearance, AA&O x 4 Skin: small petechial rash on bilateral LE HEENT: NC/AT, PERRL, EOMI, anicteric sclera, some mild conjunctival injection, external ear normal to inspection and nontender, nares patent, dry mucus membranes, dentition intact, no oropharyngeal lesions, neck supple, trachea midline, no LAD, no thyromegaly, no JVD Heart: +S1/S2, regular, no m/r/g Lungs: equal air entry bilaterally, no rales/rhonchi/wheezes Abd: +BS, soft, mildly distended and tympanic to percussion, tenderness to palpation with no rebound/guarding, no masses/organomegaly/ascites Ext: warm, 2+ pulses in UE/LE bilaterally, no clubbing/cyanosis or edema Neuro: nonfocal, patient AA&O x 4, speech intact, no facial droop, moving all extremities on command with equal strength 5/5 Results & Data Results & Data Vital Signs (Past 12 Hours) Vital Signs Temp Pulse Pulse Resp BP BP Pulse Ox 10/02/24 23:30 61 16 82/52 L 99 10/02/24 23:15 67 18 82/55 L 97 10/02/24 23:00 65 17 86/50 L 100 10/02/24 22:45 63 16 86/55 L 99 10/02/24 22:30 64 18 84/54 L 100 10/02/24 22:18 66 17 87/56 L 100 10/02/24 22:03 66 16 86/55 L 100 10/02/24 21:48 67 17 86/55 L 100 10/02/24 21:33 36.6 C 68 17 95/65 L 100 10/02/24 21:25 70 17 100 10/02/24 21:25 75 17 89/63 L 100 10/02/24 21:22 69 10/02/24 21:09 36.7 C 71 18 78/53 L 98 O2 Del Method 10/02/24 23:30 Room Air 10/02/24 23:15 Room Air 10/02/24 23:00 Room Air 10/02/24 22:45 Room Air 10/02/24 22:30 Room Air 10/02/24 22:18 Room Air 10/02/24 22:03 Room Air 10/02/24 21:48 Room Air 10/02/24 21:33 Room Air 10/02/24 21:25 Room Air 10/02/24 21:25 Room Air 10/02/24 21:22 10/02/24 21:09 Room Air Laboratory Results Laboratory Results WBC 5.31 K/ul (4.8-10.8) 10/02/24 21:20 RBC 3.45 M/uL (4.20-5.40) L 10/02/24 21:20 Hgb 10.8 g/dl (12.0-16.0) L 10/02/24 21:20 POC Hgb 11.2 g/dl (12.0-16.0) L 10/02/24 21:26 Hct 31.4 % (37.0-47.0) L 10/02/24 21:20 POC Hct 33 % (37-47) L 10/02/24 21:26 MCV 91.0 fL (80.0-100.0) 10/02/24 21:20 MCH 31.3 pg (25.0-34.0) 10/02/24 21:20 MCHC 34.4 g/dL (32.0-36.0) 10/02/24 21:20 RDW Std Deviation 43.6 fL (36.4-46.3) 10/02/24 21:20 RDW Coeff of Rosana 13.1 % (11.5-14.5) 10/02/24 21:20 Plt Count 86 K/uL (130-400) L 10/02/24 21:20 MPV 12.1 fL (9.4-12.4) 10/02/24 21:20 Immature Gran % (Auto) 1.3 % 10/02/24 21:20 Neut % (Auto) 81.7 % 10/02/24 21:20 Lymph % (Auto) 12.6 % 10/02/24 21:20 Jack % (Auto) 3.8 % 10/02/24 21:20 Eos % (Auto) 0.2 % 10/02/24 21:20 Baso % (Auto) 0.4 % 10/02/24 21:20 Neut # (Auto) 4.34 K/uL (1.40-6.50) 10/02/24 21:20 Lymph # (Auto) 0.67 K/uL (1.20-3.40) L 10/02/24 21:20 Jack # (Auto) 0.20 K/uL (0.11-0.59) 10/02/24 21:20 Eos # (Auto) 0.01 K/uL (0.00-0.50) 10/02/24 21:20 Baso # (Auto) 0.02 K/uL (0.00-0.20) 10/02/24 21:20 Immature Gran # (Auto) 0.07 K/uL (0.01-0.20) 10/02/24 21:20 PT 11.4 Seconds (9.0-12.0) 10/02/24 21:20 INR 1.1 (0.9-1.1) 10/02/24 21:20 APTT 31 Seconds (21-31) 10/02/24 21: PTT Ratio 1.2 10/02/24 21:20 VBG pH 7.43 (7.36-7.41) H 10/02/24 21:20 VBG pCO2 49 mmHg (38-50) 10/02/24 21:20 VBG pO2 33 mmHg 10/02/24 21:20 VBG HCO3 33 mmol/L 10/02/24 21:20 VBG O2 Saturation 62.9 % 10/02/24 21:20 VBG Base Excess 6.9 mEq/L 10/02/24 21:20 POC Sodium 130 mmol/L (135-144) L 10/02/24 21: Sodium 130 mmol/L (136-145) L 10/02/24 21:20 POC Potassium 4.3 mmol/L (3.3-5.0) 10/02/24 21: Potassium 4.3 mmol/L (3.5-5.1) 10/02/24 21:20 POC Chloride 92 mmol/L (101-112) L 10/02/24 21: Chloride 93 mmol/L (98-107) L 10/02/24 21:20 Carbon Dioxide 30 mmol/L (21-32) 10/02/24 21: POC Total CO2 27 mmol/L (24-31) 10/02/24 21: Anion Gap 7 (3-11) 10/02/24 21:20 POC Anion Gap 17.0 mmol/L (16-25) 10/02/24 21: POC BUN 13 mg/dl (7-18) 10/02/24: BUN 15 mg/dl (6-23) 10/02/24 21:20 Creatinine 0.84 mg/dl (0.6-1.2) 10/02/24 21: POC Creatinine 0.9 mg/dl (0.6-1.3) 10/02/24 21: Est Cr Clr Drug Dosing 75.3 ml/min 10/02/24 21:20 eGFR 86.74 10/02/24 21:20 BUN/Creatinine Ratio 17.9 (10-20) 10/02/24 21:20 Glucose 118 mg/dl (70-99(Fasting)) H 10/02/24 21:20 POC Glucose (other) 119 mg/dl (70-99) H 10/02/24 21: Lactate 1.4 mmol/L (0.4-2.0) 10/02/24 21: Calcium 8.6 mg/dl (8.6-10.3) 10/02/24 21:20 POC Ioniz Calcium Emily 1.10 mmol/l (1.12-1.32) L 10/02/24 21: Phosphorus 3.4 mg/dl (2.5-4.9) 10/02/24 21: Magnesium 2.0 mg/dl (1.7-2.4) 10/02/24 21:20 Total Bilirubin 0.6 mg/dl (0.2-1.0) 10/02/24 21: Direct Bilirubin 0.1 mg/dl (0-0.2) 10/02/24 21:20 AST 35 U/L (13-39) 10/02/24 21:20 ALT 33 U/L (7-52) 10/02/24 21:20 Alkaline Phosphatase 119 U/L (34-104) H 10/02/24 21:20 Ammonia 20.0 umol/L (18-72) 10/02/24 22:26 Lactate Dehydrogenase 273 U/L (86-244) H 10/02/24 21:20 Troponin I High Sens 9.6 pg/ml (0-14) 10/02/24 21:20 Total Protein 6.9 gm/dl (6.0-8.3) 10/02/24 21:20 Albumin 3.3 gm/dl (3.4-5.0) L 10/02/24 21:20 Procalcitonin 1.39 ng/ml (0-0.5) H 10/02/24 21:20 HCG, Qual Negative (Negative) 10/02/24 21:25 Urine Color Yellow 10/02/24 23:02 Urine Appearance Clear (Clear) 10/02/24 23:02 Urine pH 7.0 (4.5-7.5) 10/02/24 23:02 Ur Specific [place] 1.010 (1.000-1.030) 10/02/24 23:02 Urine Protein Negative (Negative) 10/02/24 23:02 Urine Glucose (UA) Negative (Negative) 10/02/24 23:02 Urine Ketones Negative (Negative) 10/02/24 23:02 Urine Blood Negative (Negative) 10/02/24 23:02 Urine Nitrite Negative (Negative) 10/02/24 23:02 Urine Bilirubin Negative (Negative) 10/02/24 23:02 Urine Urobilinogen Negative (Negative) 10/02/24 23:02 Ur Leukocyte Esterase Negative (Negative) 10/02/24 23:02 Urine Comment 10/02/24 23:02 Salicylates < 3.0 mg/dl (3.0-30) L 10/02/24 21:25 Acetaminophen 16 ug/ml (10-30) 10/02/24 21:25 Anaplasma Smear See Comment A 10/02/24 21:20 Babesia Smear See Comment 10/02/24 21:20 Lyme Disease Screen Positive (Negative) H 10/02/24 21:20 Lyme Tier 2 IgG Confirm Positive (Negative) H 10/02/24 21:20 Lyme Tier 2 IgM Confirm Positive (Negative) H 10/02/24 21:20 SARS-CoV-2 (PCR) NEGATIVE (Negative) 10/02/24 21:33 Influenza Type A (PCR) Negative (Neg) 10/02/24 21:33 Influenza Type B (PCR) Negative (Neg) 10/02/24 21:33 RSV (RT-PCR) Negative (Neg) 10/02/24 21:33 Impressions Chest X-Ray 10/02/24 21:18 CR Exam(s): XR CXR 1 VIEW EXAM: XR Chest, 1 View CLINICAL HISTORY: Reason for exam: Sepsis. TECHNIQUE: Frontal view of the chest. COMPARISON: No relevant prior studies available. FINDINGS: Lungs: Mild to moderate peribronchial thickening of the central and peripheral bronchi with increased interstitial opacities throughout the lungs. No consolidation. Pleural space: Unremarkable. No pneumothorax. Heart: Unremarkable. No cardiomegaly. Mediastinum: Unremarkable. Normal mediastinal contour. Bones/joints: Unremarkable. No acute fracture. IMPRESSION: Findings concerning for atypical pneumonia. No consolidation or pleural effusion. Communications: Verify Receipt Electronically signed by: Charo Lindsey MD 10/03/24 01:[address] 10/02/24 21:32 Exam(s): CT HEAD Without Contrast EXAM: CT Head Without Intravenous Contrast CLINICAL HISTORY: Reason for exam: ams, SMITH. TECHNIQUE: Axial computed tomography images of the head/brain without intravenous contrast. CTDI is 36.9 mGy and DLP is 625.8 mGy-cm. Automated exposure control was utilized for the study. A dose lowering technique was utilized adhering to the principles of ALARA. COMPARISON: No relevant prior studies available. FINDINGS: Brain: Unremarkable. No hemorrhage. No significant white matter disease. No edema. Ventricles: Unremarkable. No ventriculomegaly. Bones/joints: Unremarkable. No acute fracture. Soft tissues: Unremarkable. Sinuses: Unremarkable as visualized. No acute sinusitis. Mastoid air cells: Unremarkable as visualized. No mastoid effusion. IMPRESSION: No evidence of acute intracranial pathology. Electronically signed by: Charo Lindsey MD 10/03/24 00:43 AM Code Status & VTE Plan VTE Prophylaxis Plan VTE Prophylaxis will be ordered: Yes PG Care Time/CCT Total # of Minutes Spent Total Time Spent with Patient: Total time spent is greater than 50% in coordination of care (as documented) at patient's floor/unit and/or counseling patient: Coding Level of Care Code 43303 INT INP/OBS CARE 375MIN Diagnoses Anaplasmosis A77.49 Lyme disease A69.20 Pneumonia J18.9 Abdominal pain R10.9
--- NOTE | 2024-10-03 00:44 | CT Scan Report ---
Exam(s): CT HEAD Without Contrast EXAM: CT Head Without Intravenous Contrast CLINICAL HISTORY: Reason for exam: ams, SMITH. TECHNIQUE: Axial computed tomography images of the head/brain without intravenous contrast. CTDI is 36.9 mGy and DLP is 625.8 mGy-cm. Automated exposure control was utilized for the study. A dose lowering technique was utilized adhering to the principles of ALARA. COMPARISON: No relevant prior studies available. FINDINGS: Brain: Unremarkable. No hemorrhage. No significant white matter disease. No edema. Ventricles: Unremarkable. No ventriculomegaly. Bones/joints: Unremarkable. No acute fracture. Soft tissues: Unremarkable. Sinuses: Unremarkable as visualized. No acute sinusitis. Mastoid air cells: Unremarkable as visualized. No mastoid effusion. IMPRESSION: No evidence of acute intracranial pathology. Electronically signed by: Charo Lindsey MD 10/03/24 00:43 AM
--- NOTE | 2024-10-03 01:10 | XRay Report ---
Exam(s): XR CXR 1 VIEW EXAM: XR Chest, 1 View CLINICAL HISTORY: Reason for exam: Sepsis. TECHNIQUE: Frontal view of the chest. COMPARISON: No relevant prior studies available. FINDINGS: Lungs: Mild to moderate peribronchial thickening of the central and peripheral bronchi with increased interstitial opacities throughout the lungs. No consolidation. Pleural space: Unremarkable. No pneumothorax. Heart: Unremarkable. No cardiomegaly. Mediastinum: Unremarkable. Normal mediastinal contour. Bones/joints: Unremarkable. No acute fracture. IMPRESSION: Findings concerning for atypical pneumonia. No consolidation or pleural effusion. Communications: Verify Receipt Electronically signed by: Charo Lindsey MD 10/03/24 01:09 AM
[2024-10-03] MEDS ORDERED: ONDANSETRON INJ 2 MG/ML 2 ML VIAL IV PRN (02:06)
[2024-10-03] MEDS ORDERED: ACETAMINOPHEN 325 MG TAB PO PRN (02:06)
[2024-10-03] MEDS: LACTATED RINGER'S 1,000 ML IV SCH (02:36)
[2024-10-03] MEDS: ACETAMINOPHEN 325 MG TAB ONE (02:46)
[2024-10-03] MEDS ORDERED: dexAMETHasone**PF** 10 MG/ML VIAL IV ONE (05:33)
[2024-10-03] MEDS: diphenhydrAMINE 50 MG/ML VIAL IV STA (06:00)
[2024-10-03] MEDS: dexAMETHasone 10 MG in SYRINGE 0 ML IV ONE (06:00)
[2024-10-03] MEDS: MAGNESIUM SULFATE / D5W 1 GM/100 ML BAG IV SCH (06:01)
[2024-10-03] MEDS: KETOROLAC TROMETHAMINE 15 MG/ML VIAL IV PRN (06:08)
[2024-10-03 07:32] LABS: Anaplasmosis Smear(Rpt to DOH) Pos for Anaplasma
--- NOTE | 2024-10-03 07:34 | Hospitalist Progress Note ---
Date of Service October 03, 2024 Assessment & Plan (1) Human anaplasmosis: (2) Atypical pneumonia: (3) Positive Lyme disease serology: (4) Thrombocytopenia: Plan In summary this is a 44-year-old female presenting with symptomatic stomach anaplasmosis #Anaplasmosis // Atypical Pneumonia // Positive Lyme disease serologies // Thrombocytopenia Pathology review of peripheral smear does confirm anaplasmosis; consistent with the patient's clinical presentation; there is no confirmed recent tick exposure though the patient does spend a fair amount of time in the outdoors, making a possible tick exposure likely; further testing for Lyme disease does show a positive screen with IgG and IgM titers confirmed, Ehrlichia and Babesia DNA PCRs pending; this may be a false positive with respect to the patient's Lyme titers in the setting of definitive anaplasmosis, however given the similarity in treatment they will be covered regardless; the patient also has not noted thrombocytopenia of 86,000 without clustering noted on peripheral smear, this is likely consequential of their anaplasmosis however we will pursue a splenic ultrasound to rule out the possibility of sequestration in the setting of their confirmed tickborne disease Continue doxycycline 100 mg IV twice daily, started 10/02 intended for total 14-day course given concomitant positive Lyme disease testing Pending abdominal ultrasound and plain film chest PA and lateral for further assessment of suspected atypical pneumonia #Costochondritis Continue analgesic regimen as detailed below Continue acetaminophen 1000 mg p.o. every 8 hours Continue diclofenac gel 4 g 3 times daily applied to the anterior chest wall and costal margin DVT PPx: ambulatory Admission and Anticipated Discharge Date Admission Date: October 03, 2024 Anticipated date of discharge: 10/04/24 Subjective Ms. Bethel Tai is a 44-year-old female without any notable chronic medical conditions who presented to [facility] on 10/02 due to persistent and progressive generalized fatigue, headache, pleuritic chest pain over the past 6 days prior to presentation. She was subsequently admitted after being found to have anaplasmosis as well as an atypical pneumonia. No acute overnight events; this morning the patient feels mildly improved compared to the presentation. The primary concern at this point in time is their discomfort with deep inhalation causing pain along the costal margin as well as parasternally. This pain is described as sharp, is reproducible per the patient's report, and is unchanged from its initial onset 2 days prior to presentation. They endorse abdominal discomfort with palpation though at rest is relatively comfortable. They deny any recent changes to their bowel movements, increased flatulence or eructation. They deny any fevers, chills, nausea, vomiting, hemoptysis, productive cough rashes. Review of Systems Review of Systems: review of constitutional, cardiovascular, pulmonary, gastrointestinal, neurologic, integumentary systems was unremarkable except for pertinent positive and negative findings as detailed above Physical Exam Physical Exam: General: Adult female in no acute distress Vital Signs: hypotensive, asymptomatic; otherwise normal vital signs HEENT: atraumatic, normocephalic; pupils equally round reactive to light; extraocular motion intact; moist mucous membranes Neck: no notable cervical adenopathy Pulmonary: symmetric chest wall excursion restricted secondary to end inhalation parasternal and costal margin discomfort; soft crackles throughout all lung dowd, air movement is present throughout and symmetric Cardiovascular: regular rate and rhythm without murmurs, rub, or gallop; S1 and S2 normal; bilateral radial and posterior tibial pulse 2+; no notable lower extremity edema Gastrointestinal: diffusely tender to deep palpation without palpable structural abnormality; bowel sounds of normal frequency and pitch throughout the abdomen; resonant with percussion, without peritoneal findings Neurologic: CN II-XII grossly intact; no discernible focal weakness nor paresthesias Skin: no appreciable rash or lesions at this time Results & Data Results & Data Vital Signs (Past 12 Hours) Vital Signs Temp Pulse Pulse Resp BP BP BP 10/03/24 05:47 75 18 83/52 L 10/03/24 02:06 10/03/24 02:00 10/03/24 01:55 36.5 C 64 20 79/50 L 10/03/24 01:55 36.5 C 64 20 79/50 L 10/03/24 01:54 61 10/03/24 01:42 64 18 90/58 L 10/03/24 01:15 65 18 86/53 L 10/03/24 01:13 65 10/03/24 01:00 68 18 91/53 L 10/03/24 00:00 66 16 84/56 L 10/02/24 23:45 63 17 85/57 L 10/02/24 23:30 61 16 82/52 L 10/02/24 23:15 67 18 82/55 L 10/02/24 23:00 65 17 86/50 L 10/02/24 22:45 63 16 86/55 L 10/02/24 22:30 64 18 84/54 L 10/02/24 22:18 66 17 87/56 L 10/02/24 22:03 66 16 86/55 L 10/02/24 21:48 67 17 86/55 L 10/02/24 21:33 36.6 C 68 17 95/65 L 10/02/24 21:25 70 17 10/02/24 21:25 75 17 89/63 L 10/02/24 21:22 69 10/02/24 21:09 36.7 C 71 18 78/53 L Pulse Ox Pulse Ox O2 Del Method O2 Del Method O2 Flow Rate 10/03/24 05:47 100 Nasal Cannula 2 10/03/24 02:06 97 Room Air 10/03/24 02:00 Room Air 10/03/24 01:55 97 Room Air 10/03/24 01:55 97 Room Air 10/03/24 01:54 10/03/24 01:42 99 Room Air 10/03/24 01:15 98 Room Air 10/03/24 01:13 10/03/24 01:00 98 Room Air 10/03/24 00:00 99 Room Air 10/02/24 23:45 100 Room Air 10/02/24 23:30 99 Room Air 10/02/24 23:15 97 Room Air 10/02/24 23:00 100 Room Air 10/02/24 22:45 99 Room Air 10/02/24 22:30 100 Room Air 10/02/24 22:18 100 Room Air 10/02/24 22:03 100 Room Air 10/02/24 21:48 100 Room Air 10/02/24 21:33 100 Room Air 10/02/24 21:25 100 Room Air 10/02/24 21:25 100 Room Air 10/02/24 21:22 10/02/24 21:09 98 Room Air PG Care Time/CCT Total # of Minutes Spent Total Time Spent with Patient: Total time spent is greater than 50% in coordination of care (as documented) at patient's floor/unit and/or counseling patient: Coding Level of Care Code 72719 SUB INP/OBS CARE MIN Diagnoses Human anaplasmosis A77.49 Atypical pneumonia J18.9 Positive Lyme disease serology R76.8 Thrombocytopenia D69.6
[2024-10-03] MEDS: DOXYCYCLINE HYCLATE 100 MG in DEXTROSE 5% MINI-B 100 ML IV SCH (07:53)
[2024-10-03] MEDS: ACETAMINOPHEN 500 MG TAB PO SCH (10:30)
[2024-10-03] MEDS: DICLOFENAC SOD 1% GEL 100 GM TUBE EXT SCH (10:30)
[2024-10-03 10:47] VITALS: TEMP 97.7
--- NOTE | 2024-10-03 11:19 | XRay Report ---
XR chest 2V PA/lateral CLINICAL HISTORY: Reassess atypical pna COMPARISON STUDY: 10/02/2024 FINDINGS: Heart size and pulmonary vasculature are normal. There are increased reticular and faint pa tchy opacities at the lower lungs. No lobar consolidation or pleural effusion. IMPRESSION: Increased pneumonia at the lower lungs. ACT 112: Negative or not required by law. Electronically signed by: Kwame Lewis M.D. 10/03/2024 11:18 AM
[2024-10-03 15:14] VITALS: PULSE 61; RESP 17; O2SAT 98
[2024-10-03 15:26] VITALS: BP 86/53
--- NOTE | 2024-10-03 15:30 | Ultrasound Report ---
US abdomen limited HISTORY: Assess spleen iso tickborne disease. COMPARISON: None FINDINGS: There is splenomegaly measuring 16 cm in greatest dimension. Spleen is otherwise unremarkab le. No ascites seen. IMPRESSION: Mild to moderate splenomegaly. ACT 112: Negative or not required by law. Electronically signed by: Kwame Lewis M.D. 10/03/2024 3:29 PM
[2024-10-03] MEDS: KETOROLAC 30 MG/ML VIAL IV ONE (15:59)
[2024-10-03] MEDS ORDERED: cefTRIAXone SODIUM 1,000 MG/50 ML BAG IV SCH (20:00)
--- NOTE | 2024-10-04 09:52 | Discharge Summary ---
Discharge Summary Date of Service October 04, 2024 Principal Dx & Hospital Course #1 = Principal Diagnosis (1) Human anaplasmosis: (2) Atypical pneumonia: (3) Positive Lyme disease serology: (4) Thrombocytopenia: Plan In summary this is a 44-year-old female presenting with symptomatic stomach anaplasmosis #Anaplasmosis // Atypical Pneumonia // Positive Lyme disease serologies // Thrombocytopenia Pathology review of peripheral smear does confirm anaplasmosis; consistent with the patient's clinical presentation; there is no confirmed recent tick exposure though the patient does spend a fair amount of time in the outdoors, making a possible tick exposure likely; further testing for Lyme disease does show a positive screen with IgG and IgM titers confirmed, Ehrlichia and Babesia DNA PCRs pending; this may be a false positive with respect to the patient's Lyme titers in the setting of definitive anaplasmosis, however given the similarity in treatment they will be covered regardless; the patient also has not noted thrombocytopenia of 86,000 without clustering noted on peripheral smear, this is likely consequential of their anaplasmosis however we will pursue a splenic ultrasound to rule out the possibility of sequestration in the setting of their confirmed tickborne disease Continue doxycycline 100 mg po twice daily, started 10/02 intended for total 14-day course given concomitant positive Lyme disease testing Pending abdominal ultrasound - Repeat PA and lateral chest film appears without significant change from previously obtained portable film, by my interpretation #Costochondritis Continue analgesic regimen as detailed below Continue acetaminophen 1000 mg p.o. every 8 hours Continue diclofenac gel 4 g 3 times daily applied to the anterior chest wall and costal margin DVT PPx: ambulatory Notes For Next Care Provider Medication Changes From Visit Start doxycycline 100 mg p.o. twice daily through 10/16 Admission HPI Per Admitting Provider Laurence Nunez is a 44yo female presenting with illness. For the last 10 days patient has been feeling ill. She has had SMITH, chills, fatigue as well as neck stiffness. Over the last two days she has had some upper abdominal abdominal discomfort and nausea with one episode of non-bloody/non-bilious vomiting that occurred on 10/01/24. Nausea has been fairly persistent for the last 6 days. She has ongoing SMITH with scalp tenderness. Patient also with diminished appetite and poor oral intake. She denies cough. Has some pleuritic discomfort in her upper abdomen. Patient was seen at [facility] on 09/27 and was given an IM dose of Toradol and prescribed Amoxicillin which she has been taking as instructed with no improvement in symptoms. Patient is very active and hikes a lot. She was recently in a lot of brush at [facility], operated by [facility] but denies any known tick bites or rashes. In the ER patient hypotensive with blood pressure 78-95 / 53-65 ER Course: NSS x 2L bolus LR x 1L Calcium gluconate x 2gm IV Tylenol 1gm Zofran 4mg IV Ceftriaxone 2gm IV Doxycycline 200mg PO Discharge Exam General: Adult female in no acute distress Vital Signs: hypotensive, asymptomatic; otherwise normal vital signs HEENT: atraumatic, normocephalic; pupils equally round reactive to light; extraocular motion intact; moist mucous membranes Neck: no notable cervical adenopathy Pulmonary: symmetric chest wall excursion restricted secondary to end inhalation parasternal and costal margin discomfort; soft crackles throughout all lung dowd, air movement is present throughout and symmetric Cardiovascular: regular rate and rhythm without murmurs, rub, or gallop; S1 and S2 normal; bilateral radial and posterior tibial pulse 2+; no notable lower extremity edema Gastrointestinal: diffusely tender to deep palpation without palpable structural abnormality; bowel sounds of normal frequency and pitch throughout the abdomen; resonant with percussion, without peritoneal findings Neurologic: CN II-XII grossly intact; no discernible focal weakness nor paresthesias Skin: no appreciable rash or lesions at this time Discharge Plan Discharge Items Patient Disposition: Home - Self-Care Reason For Visit: ANAPLASMOSIS Discharge Diagnosis: Anaplasmosis Condition on Discharge: Fair Activity: As commented below Non-emergency contact: Primary Care Provider Call non-emergency contact if: you have any medication questions, your symptoms worsen, your pain is not controlled and your temperature is above 101.5 Follow-up/Referrals: Yosvany Melgar MD [Primary Care Provider] - 10/05/24 8:25 am Diet: Regular Fluids: 1800ml (7 cups) Addtl Attending Provider Instructions: You were admitted to [facility] for symptomatic anaplasmosis. With respect to bacterial anaplasmosis we will continue doxycycline 100 mg p.o. twice daily through 10/16. there is no indication for extended treatment in the setting of positive Lyme disease titers, this is most likely positive in the setting of your anaplasmosis however 14 days is considered adequate based on recommendations from the [place] [employer]. In addition to the above condition you have an associated costochondritis which is not uncommon with systemic tickborne diseases. Recommend continuation of acetaminophen 1000 mg p.o. every 8 hours scheduled in addition to diclofenac gel 4 g 3 times daily applied to the areas of discomfort involving your chest wall. Thank you for choosing [facility] as your healthcare provider. Pending Studies at Discharge: Yes Studies:: Ehrlichia and Babesia DNA PCRs, Splenic US Stand-Alone Forms: My [facility] Medications and DC Order Prescriptions: New acetaminophen [Tylenol Extra Strength] 500 mg Tablet 1,000 mg PO Q8H 14 Days Qty: 84 0RF diclofenac sodium [Voltaren Arthritis Pain] 1 % Gel 4 g EXT TID 14 Days Qty: 1 0RF doxycycline hyclate 100 mg capsule 100 mg PO BID 14 Days Qty: 28 0RF Continued ketorolac 10 mg tablet 10 mg PO Q6H PRN (Reason: pain/headache ) 5 Days Qty: 10 0RF Rx Instructions: maximum total duration of 5 days from all oral, intranasal, or parenteral formulations Discontinued amoxicillin 875 mg tablet 875 mg PO BID 10 Days Qty: 20 0RF ondansetron HCl 4 mg tablet 4 mg PO Q8H PRN (Reason: nausea and vomiting) Qty: 30 0RF Discharge Orders: Discharge Order (Routine); Ordered 10/03/24 Ordered By: Juan Carlos Covarrubias/Other Patient Handouts: Anaplasmosis, Costochondritis, Tick Bites Admission Data Admit Date/Time: 10/03/24 00:24 Attending Provider: Juan Carlos Brooks Admit Provider: Cayla Segura Primary Care Provider: Yosvany Melgar Other Providers: Cayla Segura Other Interventions: Discharge Summary Assessment (RN) Last Done: 10/03/24 15:25 Hospital Stay Data Consultations 10/02/24 23:29 ED Decision to Admit Stat Diagnostic Imagining Performed 10/02/24 21:32 CT head/brain wo con Stat 10/03/24 10:42 US abdomen limited Routine Pending Results Patient Have Any Pending Studies at Discharge: Yes Discharge Instructions Given to Patient (Per Discharging Provider) You were admitted to [facility] for symptomatic anaplasmosis. With respect to bacterial anaplasmosis we will continue doxycycline 100 mg p.o. twice daily through 10/16. there is no indication for extended treatment in the setting of positive Lyme disease titers, this is most likely positive in the setting of your anaplasmosis however 14 days is considered adequate based on recommendations from the [place] [employer]. In addition to the above condition you have an associated costochondritis which is not uncommon with systemic tickborne diseases. Recommend continuation of acetaminophen 1000 mg p.o. every 8 hours scheduled in addition to diclofenac gel 4 g 3 times daily applied to the areas of discomfort involving your chest wall. Thank you for choosing [facility] as your healthcare provider. Total Time Total Time Spent Total Time Spent (In Minutes): 50 Coding Level of Care Code 04417 INP/OBS DISCH >30 MIN Diagnoses Human anaplasmosis A77.49 Atypical pneumonia J18.9 Positive Lyme disease serology R76.8 Thrombocytopenia D69.6
--- NOTE | 2024-10-07 09:58 | Electrocardiogram Report ---
Test Reason : Blood Pressure : */* mmHG Vent. Rate : 67 BPM Atrial Rate : 67 BPM P-R Int : 160 ms QRS Dur : 78 ms QT Int : 396 ms P-R-T Axes : -19 34 27 degrees QTcB Int : 418 ms Normal sinus rhythm Normal ECG No previous ECGs available Confirmed by Zachery Mendoza ([id number]) on 10/07/2024 9:57:54 AM Referred By: REFERRED SELF Confirmed By: Zachery Mendoza
== END 2024-10-03 17:30 | disposition home or self-care (01) | DRG 867 ==
LOC: ED 21:06 → 2S 10-03 00:24 → SUATTDRO 10-03 00:24 → 2S 10-03 01:42